=== PATIENT | male | born 1995 | race Caucasian/White ===

== ENCOUNTER 2017-12-08 15:56 | Emergency (ER) | payer OTHER ==
[~2017-12-08] VITALS: Ht 175.3 cm; Wt 46.7 kg
== END 2017-12-08 20:23 | disposition home or self-care (01) ==
LOC: EDBD 15:56 → ER 15:56
DX: Q87.40 Marfan syndrome, unspecified (principal); R07.89 Other chest pain

== ENCOUNTER → 2017-12-23 | Emergency (ER) | payer OTHER ==
[~2017-12-23] VITALS: Ht 175.3 cm; Wt 46.7 kg
[~2017-12-23] MED LIST: COZAAR25 MG; ZYNCOF 20-400120 ML PO
== END | disposition home or self-care (01) ==
LOC: ER 22:35
DX: R07.89 Other chest pain (principal); J93.83 Other pneumothorax; R06.02 Shortness of breath

== ENCOUNTER → 2018-06-13 | Emergency (ER) | payer OTHER ==
[~2018-06-13] VITALS: Ht 175.3 cm; Wt 46.7 kg
== END | disposition left against medical advice (07) ==
LOC: ER 22:27
DX: Z53.20 Procedure and treatment not carried out because of patient's decision for unspecified reasons (principal)